=== PATIENT | male | born 1950 | race Caucasian/White ===

== ENCOUNTER 2018-03-07 10:52 | Emergency (ER) | payer MEDICARE, OTHER ==
[~2018-03-07] VITALS: Ht 182.9 cm; Wt 107.3 kg
[2018-03-07 10:56] VITALS: BP 149/93
[2018-03-07] MEDS ORDERED: DOXA4TAB3 PO (11:41)
[2018-03-07] MEDS ORDERED: SERT100T PO (11:41)
[2018-03-07] MEDS ORDERED: ATOR80TA PO (11:41)
[2018-03-07] MEDS ORDERED: QUET-1 PO (11:41)
== END 2018-03-07 11:55 | disposition home or self-care (01) ==
LOC: ER 10:53
DX: F32.9 Major depressive disorder, single episode, unspecified (principal); E78.00 Pure hypercholesterolemia, unspecified; Z76.0 Encounter for issue of repeat prescription; Z79.899 Other long term (current) drug therapy
CPT/HCPCS: 99283